=== PATIENT | female | born 1940 | race Caucasian/White ===

== ENCOUNTER 2017-10-16 07:08 | Day surgery (SDC) | payer OTHER, MEDICAID ==
[2017-10-16] MEDS ORDERED: TETRACAINE 0.5% OPHTH 1 DOSE AFFEYE ONE ×2 (08:05→11:41)
[2017-10-16] MEDS ORDERED: VIGAMOX 0.5% OPHTH 1 DOSE AFFEYE ONE ×5 (08:06→12:12)
[2017-10-16] MEDS ORDERED: PROLENSA OPHTH 1 DOSE AFFEYE ONE (08:17)
[2017-10-16] MEDS ORDERED: ALPHAGAN-P OPHTH 1 DOSE AFFEYE ONE (08:18)
[2017-10-16] MEDS ORDERED: AK-DILATE 2.5% OPHTH 1 DOSE OP ONE ×3 (08:19→08:25)
[2017-10-16] MEDS ORDERED: CYCLOGYL 1% OPHTH 1 DOSE OP ONE ×3 (08:19→08:25)
[2017-10-16] MEDS ORDERED: MYDRIACIL OPHTH 1 DOSE AFFEYE ONE ×3 (08:19→08:25)
[2017-10-16] MEDS ORDERED: NS 500 ML IV 500 ML IV ONE ×2 (08:25→09:42)
[2017-10-16] MEDS ORDERED: BETADINE OPHTH SOLN 5% EACHEYE ONE (11:41)
[2017-10-16] MEDS ORDERED: DUOVISC IO ONE ×2 (11:46→12:00)
[2017-10-16] MEDS ORDERED: ADRENALINE CHL INJ IJ ONE ×2 (11:46→12:00)
[2017-10-16] MEDS ORDERED: XYLOCAINE-MPF 1% IJ ONE ×2 (11:46→12:00)
[2017-10-16] MEDS ORDERED: BSS OPHTH (PLAIN) 500 ML with VANCOMYCIN HCL 500 MG VIAL 25 MG, ADRENALINE CHL INJ 1 MG IR ONE ×6 (11:48)
[2017-10-16 12:31] VITALS: BP 142/69
[2017-10-16] MEDS ORDERED: DIPRIVAN VIAL ONE (15:47)
== END 2017-10-16 12:35 | disposition home or self-care (01) ==
LOC: SURG1 07:08
PROVIDERS: ATTEND Ophthalmology
PROC: 08DK3ZZ Extraction of Left Lens, Percutaneous Approach (ICD-10-PCS; principal; 2017-10-16 15:00)
PROC: 08RK3JZ Replacement of Left Lens with Synthetic Substitute, Percutaneous Approach (ICD-10-PCS; principal; 2017-10-16 15:00)
DX: H25.12 Age-related nuclear cataract, left eye (principal); H25.012 Cortical age-related cataract, left eye
CPT/HCPCS: 99100; A4217; J0170; J3370; J3490

== ENCOUNTER 2017-10-30 06:55 | Day surgery (SDC) | payer OTHER, MEDICAID ==
[2017-10-30] MEDS ORDERED: NS 500 ML IV 500 ML IV ONE (07:19)
[2017-10-30] MEDS ORDERED: TETRACAINE 0.5% OPHTH 1 DOSE AFFEYE ONE ×2 (07:30→09:22)
[2017-10-30] MEDS ORDERED: VIGAMOX 0.5% OPHTH 1 DOSE AFFEYE ONE ×5 (07:35→09:56)
[2017-10-30] MEDS ORDERED: PROLENSA OPHTH 1 DOSE AFFEYE ONE (07:46)
[2017-10-30] MEDS ORDERED: ALPHAGAN-P OPHTH 1 DOSE AFFEYE ONE (07:47)
[2017-10-30] MEDS ORDERED: CYCLOGYL 1% OPHTH 1 DOSE OP ONE ×3 (07:48→07:50)
[2017-10-30] MEDS ORDERED: AK-DILATE 2.5% OPHTH 1 DOSE OP ONE ×3 (07:48→07:50)
[2017-10-30] MEDS ORDERED: MYDRIACIL OPHTH 1 DOSE AFFEYE ONE ×3 (07:48→07:50)
[2017-10-30] MEDS ORDERED: BETADINE OPHTH SOLN 5% EACHEYE ONE (09:22)
[2017-10-30] MEDS ORDERED: BSS OPHTH (PLAIN) 500 ML with VANCOMYCIN HCL 500 MG VIAL 25 MG, ADRENALINE CHL INJ 1 MG IR ONE ×3 (09:35)
[2017-10-30] MEDS ORDERED: XYLOCAINE-MPF 1% IJ ONE (09:35)
[2017-10-30] MEDS ORDERED: DUOVISC IO ONE (09:35)
[2017-10-30] MEDS ORDERED: ADRENALINE CHL INJ IJ ONE (09:35)
[2017-10-30] MEDS ORDERED: VISCOAT 0.5 ML IO ONE (09:43)
[2017-10-30 10:17] VITALS: BP 168/78
[2017-10-30] MEDS ORDERED: DIPRIVAN VIAL ONE (15:34)
== END 2017-10-30 10:16 | disposition home or self-care (01) ==
LOC: SURG1 06:55
PROVIDERS: ATTEND Ophthalmology
PROC: 08RJ3JZ Replacement of Right Lens with Synthetic Substitute, Percutaneous Approach (ICD-10-PCS; principal; 2017-10-30 08:15)
PROC: 08DJ3ZZ Extraction of Right Lens, Percutaneous Approach (ICD-10-PCS; principal; 2017-10-30 08:15)
DX: H25.11 Age-related nuclear cataract, right eye (principal); H25.011 Cortical age-related cataract, right eye
CPT/HCPCS: 99100; A4217; J0170; J3370; J3490